=== PATIENT | female | born 1960 | race Caucasian/White ===

== ENCOUNTER → 2018-12-29 | Outpatient (CLI) | payer OTHER ==
[~2018-12-29] MED LIST: ACET-2267 PO; ALPR0.254 PO; DOXY100C2 PO; IBUP-30 PO
[2018-12-29 15:39] LABS: BASOPHILS % (AUTO) 0 % (0-10); EOSINOPHILS % (AUTO) 0 % (0-10); HEMATOCRIT 41 % (35-52); HEMOGLOBIN 14.2 G/DL (11.5-16.0); LYMPHOCYTES # (AUTO) 0.9 X 10^3 (1.0-4.0); LYMPHOCYTES % (AUTO) 7 % (12-44); MEAN CORPUSCULAR HEMOGLOBIN 32 PG (25-34); MEAN CORPUSCULAR HGB CONC 34 G/DL (32-36); MEAN CORPUSCULAR VOLUME 92 FL (80-99); MEAN PLATELET VOLUME 9.7 FL (7.4-10.4); MONOCYTES # (AUTO) 0.3 X 10^3 (0.0-1.0); MONOCYTES % (AUTO) 3 % (0-12); NEUTROPHILS # (AUTO) 10.8 X 10^3 (1.8-7.8); NEUTROPHILS % (AUTO) 90 % (42-75); PLATELET COUNT 427 10^3/uL (130-400); RED CELL DISTRIBUTION WIDTH 14.4 % (10.0-14.5)
[2018-12-29 16:03] LABS: BAND NEUTROPHILS 5 %; BASOPHILS % (MANUAL) 0 %; EOSINOPHILS % (MANUAL) 0 %; LYMPHOCYTES % (MANUAL) 3 %; MONOCYTES % (MANUAL) 3 %; NEUTROPHILS % (MANUAL) 89 %; TOXIC GRANULATION/VACUOLAZATIO 1+
--- NOTE | 2018-12-29 16:16 | Diagnostic Imaging Report ---
EXAMINATION: Chest, PA and lateral views. INDICATION: Shortness of breath. COMPARISON: None available. FINDINGS: The lungs are clear and the pulmonary vasculature is normal. No pneumothorax or pleural effusion. The cardiomediastinal silhouette is normal. No acute osseous abnormality. IMPRESSION: No acute chest disease. Dictated by: Dictated on workstation # [id number]
== END ==
LOC: LAB 15:14
PROVIDERS: ATTEND Nurse Practitioner Family
DX: R06.02 Shortness of breath (principal); R53.83 Other fatigue
CPT/HCPCS: 36415; 71046; 85007; 85027; 86308

== ENCOUNTER 2018-12-30 11:54 | Inpatient (IN) | payer OTHER ==
[~2018-12-30] VITALS: Ht 177.8 cm; Wt 71.8 kg
--- OUTSIDE RECORDS SUMMARY | 2018-12-30 11:58 | XMS REPORT ---
Author Author FLAQUITA SULLIVAN Organization [facility] Address [address] [place] [address] Care Team Providers Care Dog Catcher Name Role Phone FLAQUITA SULLIVAN Unavailable PROBLEMS Unknown Problems ALLERGIES No Information ENCOUNTERS Encounter Location Date Diagnosis [facility] [address] [facility] [id number] [address] May, Encounter for immunization Z23 IMMUNIZATIONS Vaccine Route Administration Date Status FLULAVAL QUAD 0.5ML (6 MO & UP) 2018 IM Intramuscular Jun 05, 2018 Administered SOCIAL HISTORY Never Assessed REASON FOR VISIT Flu shot PLAN OF CARE VITAL SIGNS MEDICATIONS Unknown Medications RESULTS No Results PROCEDURES Procedure Date Ordered Result Body Site FLULAVAL QUAD 0.5ML (6 MO AND UP) 2018 Jun 05, 2018 SINGLE IMMUNIZATION ADMIN Jun 05, 2018 INSTRUCTIONS MEDICATIONS ADMINISTERED No Known Medications
[2018-12-30 12:20] VITALS: BP 115/86
--- NOTE | 2018-12-30 12:20 | NUR ---
FLAQUITA HERNANDEZ admitted to room 417-1, with an admitting diagnosis of FEVER, SIRS, on 12/30/18 from via DA FROM DR. COOK, accompanied by . FLAQUITA HERNANDEZ introduced to surroundings, call light, bed controls, phone, TV, temperature control, lights, meal times, smoking policy, visitor policy, side rail policy, bathrooms and showers. Patient Rights given to patient in the handbook. FLAQUITA HERNANDEZ verbalizes understanding that [facility] is not responsible for the loss or damage to any personal effects or valuables that are kept in the patients posession during their hospitalization. FLAQUITA HERNANDEZ verbalizes understanding of Interdisciplinary Patient Education. Patient and/or family were informed about the Rapid Response Team and its purpose.
[2018-12-30] MEDS ORDERED: ONDANSETRON 4 MG/2 ML (SDV) Z0FRAN IV PRN (12:30)
[2018-12-30] MEDS ORDERED: PATIENT MAY USE OWN MEDS, ALL PO SCH (12:30)
[2018-12-30] MEDS ORDERED: DOXYCYCLINE INJECTION 100 MG in NS (IVPB) 100 ML IV NR (12:30)
[2018-12-30] MEDS: NS IV 1000 ML 1,000 ML IV SCH ×2 (12:44→22:56)
[2018-12-30 13:04] LABS: BASOPHILS % (AUTO) 0 % (0-10); EOSINOPHILS % (AUTO) 0 % (0-10); HEMATOCRIT 35 % (35-52); HEMOGLOBIN 12.1 G/DL (11.5-16.0); LYMPHOCYTES # (AUTO) 0.8 X 10^3 (1.0-4.0); LYMPHOCYTES % (AUTO) 7 % (12-44); MEAN CORPUSCULAR HEMOGLOBIN 32 PG (25-34); MEAN CORPUSCULAR HGB CONC 35 G/DL (32-36); MEAN CORPUSCULAR VOLUME 93 FL (80-99); MONOCYTES # (AUTO) 0.5 X 10^3 (0.0-1.0); MONOCYTES % (AUTO) 4 % (0-12); NEUTROPHILS # (AUTO) 10.8 X 10^3 (1.8-7.8); NEUTROPHILS % (AUTO) 90 % (42-75); PLATELET COUNT 361 10^3/uL (130-400); RED CELL DISTRIBUTION WIDTH 14.5 % (10.0-14.5)
[2018-12-30 13:30] LABS: ALANINE AMINOTRANSFERASE 71 U/L (0-55); ALBUMIN 3.3 GM/DL (3.2-4.5); ALKALINE PHOSPHATASE 113 U/L (40-136); BILIRUBIN,TOTAL 0.1 MG/DL (0.1-1.0); BUN/CREATININE RATIO 14; CALCIUM 9.2 MG/DL (8.5-10.1); CARBON DIOXIDE 20 MMOL/L (21-32); CHLORIDE 106 MMOL/L (98-107); CREATININE SERUM 0.78 MG/DL (0.60-1.30); GFR ESTIMATED > 60; GLUCOSE 129 MG/DL (70-105); POTASSIUM 3.5 MMOL/L (3.6-5.0); SODIUM 139 MMOL/L (135-145); TOTAL PROTEIN 7.4 GM/DL (6.4-8.2)
[2018-12-30 14:16] LABS: BILIRUBIN,URINE NEGATIVE (NEGATIVE); CLARITY,URINE SLIGHTLY CLOUDY; COLOR,URINE YELLOW; GLUCOSE, URINE (UA) NEGATIVE (NEGATIVE); KETONES,URINE NEGATIVE (NEGATIVE); LEUKOCYTE ESTERASE ,URINE 2+ (NEGATIVE); NITRITE,URINE NEGATIVE (NEGATIVE); PH,URINE 7 (5-9); PROTEIN,URINE NEGATIVE (NEGATIVE); UROBILINOGEN,URINE NORMAL (NORMAL)
[2018-12-30 14:23] LABS: BACTERIA,URINE TRACE /HPF
[2018-12-30] MEDS: ACETAMINOPHEN 325 MG TABLET PO PRN ×2 (14:25→19:48)
[2018-12-30 16:00] VITALS: BP 119/78
[2018-12-30 20:04] VITALS: BP 127/90
[2018-12-30] MEDS ORDERED: IBUPROFEN 600 MG (MOTRIN) TAB PO ONE (20:38)
[2018-12-30] MEDS: IBUPROFEN 600 MG (MOTRIN) TAB PO PRN (20:44)
[2018-12-30] MEDS: DOXYCYCLINE INJECTION 100 MG in NS (IVPB) 100 ML IV SCH (21:20)
[2018-12-31] VITALS: BP 113/73
[2018-12-31 04:05] VITALS: BP 135/87
[2018-12-31] MEDS: IBUPROFEN 600 MG (MOTRIN) TAB PO PRN ×3 (04:19→19:28)
[2018-12-31 05:34] LABS: HEMOGLOBIN 11.1 G/DL (11.5-16.0); MEAN PLATELET VOLUME 9.5 FL (7.4-10.4); RED CELL DISTRIBUTION WIDTH 14.2 % (10.0-14.5); WHITE BLOOD COUNT 8.5 10^3/uL (4.3-11.0)
[2018-12-31 05:56] LABS: ALANINE AMINOTRANSFERASE 66 U/L (0-55); ALBUMIN 2.8 GM/DL (3.2-4.5); ALKALINE PHOSPHATASE 88 U/L (40-136); BILIRUBIN,TOTAL 0.2 MG/DL (0.1-1.0); BUN/CREATININE RATIO 13; CALCIUM 8.2 MG/DL (8.5-10.1); CARBON DIOXIDE 19 MMOL/L (21-32); CHLORIDE 107 MMOL/L (98-107); CREATININE SERUM 0.62 MG/DL (0.60-1.30); GFR ESTIMATED > 60; GLUCOSE 101 MG/DL (70-105); POTASSIUM 3.2 MMOL/L (3.6-5.0); SODIUM 136 MMOL/L (135-145); TOTAL PROTEIN 6.3 GM/DL (6.4-8.2)
[2018-12-31] MEDS: NS IV 1000 ML 1,000 ML IV SCH ×2 (07:00→15:25)
[2018-12-31] MEDS: ACETAMINOPHEN 325 MG TABLET PO PRN (07:04)
[2018-12-31 07:50] VITALS: BP 114/71
[2018-12-31] MEDS: DOXYCYCLINE INJECTION 100 MG in NS (IVPB) 100 ML IV SCH ×2 (08:35→19:58)
[2018-12-31] MEDS ORDERED: KCL 20 MEQ TAB (K-DUR) PO NR (12:30)
[2018-12-31] MEDS ORDERED: ALPRAZolam 0.25 MG (XANAX) TAB PO NR (12:30)
[2018-12-31] MEDS ORDERED: MAGNESIUM OXIDE (MAG-OX)400 MG TAB PO NR (12:30)
[2018-12-31 12:32] VITALS: BP 126/87
[2018-12-31] MEDS: cefTRIAXone FOR IV USE 1,000 MG in WATER (STERILE) FOR INJECTION 10 ML IV SCH (13:28)
--- NOTE | 2018-12-31 13:38 | NUR ---
PT REQUESTED SOMETHING TO HAVE A BM VOICED LAST BM WAS 12/29 AND IT WAS SMALL -- THIS RN CALLED DR COOK AND LEFT MESSAGE
[2018-12-31] MEDS ORDERED: MILK OF MAGNESIA 400 MG/5 ML 30 ML UDC PO NR (14:15)
[2018-12-31] MEDS ORDERED: SENNA W/DOCUSATE (SENOKOT S) TABLET PO NR (14:15)
--- NOTE | 2018-12-31 15:51 | Diagnostic Imaging Report ---
PROCEDURE: CT head without contrast. TECHNIQUE: Multiple contiguous axial images were obtained through the brain without the use of intravenous contrast. Auto Exposure Controls were utilized during the CT exam to meet ALARA standards for radiation dose reduction. INDICATION: Headache and dizziness for 10 days. COMPARISON: No prior studies are available for comparison. FINDINGS: The ventricles and sulci are within normal limits. No sulcal effacement, midline shift or hemorrhage is detected. Cisterns are patent. Visualized paranasal sinuses are clear. IMPRESSION: No acute intracranial process is detected. Dictated by: Dictated on workstation # [id number]
[2018-12-31 16:00] VITALS: BP 126/86
--- NOTE | 2018-12-31 18:51 | History & Physicial ---
History of Present Illness History of Present Illness Reason for visit/HPI This is a 58 year old female who originally presented to my office with at least a 2 week history of fevery, TSANG, and bodyaches. She had been seen twice in the [facility] and had been given antibiotics for sinus infection as well as steroids. In my office she appeared very ill and admission was initially offered but she declined. She did agree to IVFs and rocephin and to fwup the next day, however, after the IV fluids she was not feeling any better and agreed to hospital admission. Date of Admission December 30, 2018 at 11:54 Date Seen by a Provider: December 31, 2018 Time Seen by a Provider: 12:20 I consulted on this patient on 12/31/18 18:46 Attending Physician Mae Mosqueda DO Admitting Physician Mae Mosqueda DO Consult Allergies and Home Medications Allergies Coded Allergies: No Known Allergies (Verified Allergy, Unknown, 12/30/18) Patient Home Medication List Home Medication List Reviewed: Yes Past Fhqsamw-Muiihz-Dabbkq Hx Patient Social History Alcohol Use: Denies Use Recreational Drug Use: No Physical Abuse Screen: No Sexual Abuse: No Recent Foreign Travel: No Contact w/other who traveled: No Recent Hopitalizations: No Recent Infectious Disease Expo: No Seasonal Allergies Seasonal Allergies: No Surgeries Yes (breat augmentation, D&C for miscarriages) Respiratory No Cardiovascular No Neurological No Genitourinary No Gastrointestinal No Musculoskeletal Yes Arthritis Endocrine History of Endocrine Disorders: No HEENT History of HEENT Disorders: No Cancer No Psychosocial History of Psychiatric Problem: No Integumentary History of Skin or Integumenta: Yes Skin/Integumentary Disorders: Psoriasis Blood Transfusions History of Blood Disorders: No Adverse Reaction to a Blood Tr: No Family Medical History Family Hx: Alzheimer's disease 19 FATHER, Completed stroke 19 MOTHER, Diabetes mellitus G8 SISTER G8 SISTER Hypertension 19 MOTHER, G8 SISTER G8 SISTER Review of Systems Constitutional: chills, fever EENTM: nose congestion (sinus pain) Respiratory: No no symptoms reported, No see HPI, No cough, No dyspnea on exertion, No hemoptysis, No orthopnea, No phlegm, No short of breath, No stridor , No wheezing, No other Cardiovascular: palpitations Gastrointestinal: loss of appetite Genitourinary: No no symptoms reported, No see HPI, No decreased output, No discharge, No dysuria, No frequency, No hematuria, No hesitancy, No incontinence , No nocturia, No pain, No other Musculoskeletal: joint pain, muscle weakness Skin: No no symptoms reported, No see HPI, No change in color, No change in hair/nails, No dryness, No hx of skin cancer, No lesions, No lumps, No pruritus , No rash, No other Psychiatric/Neurological: Headache, Weakness Physical Exam Vital Signs Vital Signs - First Documented 12/30/18 15:45 Pulse 107 Capillary Refill : Height, Weight, BMI Height: 5'10.00" Weight: 158lbs. 6.4oz. 71.367607mn; BMI Method: General Appearance: Moderate Distress HEENT: Normal ENT Inspection Neck: Supple Respiratory: Lungs Clear Cardiovascular: Gallop/S4, Tachycardia Gastrointestinal: Normal Bowel Sounds, Non Tender, Soft Rectal: Deferred Back: No CVA Tenderness Extremity: Non Tender, No Calf Tenderness, No Pedal Edema Neurologic/Psychiatric: Alert, Oriented x3 Skin: Normal Color, Warm/Dry Comments Laboratory Tests 12/31/18 05:20: White Blood Count 8.5, Red Blood Count 3.47L, Hemoglobin 11.1L, Hematocrit 32L, Mean Corpuscular Volume 92, Mean Corpuscular Hemoglobin 32, Mean Corpuscular Hemoglobin Concent 35, Red Cell Distribution Width 14.2, Platelet Count 319, Mean Platelet Volume 9.5, Sodium Level 136, Potassium Level 3.2L, Chloride Level 107, Carbon Dioxide Level 19L, Anion Gap 10, Blood Urea Nitrogen 8, Creatinine 0.62, Estimat Glomerular Filtration Rate > 60, BUN/Creatinine Ratio 13, Glucose Level 101, Calcium Level 8.2L, Corrected Calcium 9.2, Total Bilirubin 0.2, Aspartate Amino Transf (AST/SGOT) 55H, Alanine Aminotransferase ( ALT/SGPT) 66H, Alkaline Phosphatase 88, Total Protein 6.3L, Albumin 2.8L Microbiology 12/30/18 Blood Culture - Preliminary, Resulted No growth Assessment/Plan Assessment and Plan 1. SIRS--admit and check blood cultures, urine cultures, tick titers, cover with doxycycline for tick etiology 2. Tachycardia--hydrate and monitor Admission Diagnosis Admission Status: Inpatient Order (span 2 midnights) Reason for Inpatient Admission: Will need IV abx for at leas 2 days until culture results available Clinical Quality Measures DVT/VTE Risk/Contraindication: Risk Factor Score Per Nursin RFS Level Per Nursing on Admit: 2=Moderate MAE MOSQUEDA DO December 31, 2018 18:51
[2018-12-31 20:00] VITALS: BP 142/99
[2018-12-31] MEDS: ALPRAZolam 0.25 MG (XANAX) TAB PO PRN (20:09)
[2019-01-01] VITALS: BP 122/81
[2019-01-01] MEDS: NS IV 1000 ML 1,000 ML IV SCH ×2 (00:31→06:33)
[2019-01-01 04:00] VITALS: BP 138/91
[2019-01-01] MEDS: ALPRAZolam 0.25 MG (XANAX) TAB PO PRN (04:54)
[2019-01-01 05:25] LABS: BASOPHILS % (AUTO) 0 % (0-10); EOSINOPHILS # (AUTO) 0.1 10^3/uL (0.0-0.3); EOSINOPHILS % (AUTO) 1 % (0-10); HEMATOCRIT 35 % (35-52); HEMOGLOBIN 11.9 G/DL (11.5-16.0); LYMPHOCYTES # (AUTO) 1.3 X 10^3 (1.0-4.0); LYMPHOCYTES % (AUTO) 15 % (12-44); MEAN CORPUSCULAR HEMOGLOBIN 31 PG (25-34); MEAN CORPUSCULAR HGB CONC 34 G/DL (32-36); MEAN CORPUSCULAR VOLUME 92 FL (80-99); MEAN PLATELET VOLUME 9.3 FL (7.4-10.4); MONOCYTES # (AUTO) 0.7 X 10^3 (0.0-1.0); MONOCYTES % (AUTO) 9 % (0-12); NEUTROPHILS # (AUTO) 6.4 X 10^3 (1.8-7.8); NEUTROPHILS % (AUTO) 75 % (42-75); PLATELET COUNT 400 10^3/uL (130-400); RED CELL DISTRIBUTION WIDTH 14.8 % (10.0-14.5); WHITE BLOOD COUNT 8.5 10^3/uL (4.3-11.0)
[2019-01-01 05:49] LABS: ALANINE AMINOTRANSFERASE 70 U/L (0-55); ALBUMIN 2.9 GM/DL (3.2-4.5); ALKALINE PHOSPHATASE 99 U/L (40-136); BILIRUBIN,TOTAL 0.2 MG/DL (0.1-1.0); BUN/CREATININE RATIO 7; CALCIUM 8.7 MG/DL (8.5-10.1); CARBON DIOXIDE 20 MMOL/L (21-32); CHLORIDE 106 MMOL/L (98-107); CREATININE SERUM 0.67 MG/DL (0.60-1.30); GFR ESTIMATED > 60; GLUCOSE 87 MG/DL (70-105); POTASSIUM 3.6 MMOL/L (3.6-5.0); SODIUM 138 MMOL/L (135-145); TOTAL PROTEIN 6.7 GM/DL (6.4-8.2)
[2019-01-01] MEDS: IBUPROFEN 600 MG (MOTRIN) TAB PO PRN (06:58)
[2019-01-01] MEDS ORDERED: KCL 20 MEQ TAB (K-DUR) PO SCH (07:00)
[2019-01-01 08:00] VITALS: BP 126/88
[2019-01-01] MEDS: DOXYCYCLINE INJECTION 100 MG in NS (IVPB) 100 ML IV SCH (08:17)
[2019-01-01] MEDS ORDERED: ALPRAZolam 0.25 MG (XANAX) TAB PO PRN (08:45)
[2019-01-01] MEDS ORDERED: ACET-2267 PO (11:41)
[2019-01-01] MEDS ORDERED: IBUP-30 PO (11:41)
[2019-01-01] MEDS: cefTRIAXone FOR IV USE 1,000 MG in WATER (STERILE) FOR INJECTION 10 ML IV SCH (11:42)
--- NOTE | 2019-01-01 11:42 | NUR ---
SPOKE WITH THE PATIENT ABOUT HER MEDICATIONS. SHE STATES SHE DOES NOT TAKE ANYTHING NORMALLY. SHE HAS BEEN TAKING IBU AND TYLENOL PRN. SHE WAS RECENTLY PRESCRIBED DOXYCYCLINE HOWEVER WAS TOLD TO STOP TAKING THIS BY DR. COOK, I DID NOT ADD IT TO THE MED REC.
[2019-01-01 12:00] VITALS: BP 124/87
[2019-01-01] MEDS ORDERED: ALPR0.254 PO (12:48)
[2019-01-01] MEDS ORDERED: DOXY100C2 PO (12:48)
--- NOTE | 2019-01-01 12:49 | Discharge Inst-Simple/Standard ---
Discharge Inst-Standard Discharge Medications New, Converted or Re-Newed RX: Transmitted to Pharmacy Patient Instructions/Follow Up Plan of Care/Instructions/FU: See me tomorrow in my office at 11:45 AM Activity as Tolerated: Yes Discharge Diet: No Restrictions MARTHA COOK DO January 01, 2019 12:49
--- NOTE | 2019-01-01 13:42 | NUR ---
FLAQUITA HERNANDEZ demonstrates understanding of discharge instructions and accurately returns instructions upon questioning. Copy of Post-Discharge Instructions and Medication Discharge Instructions given to PATIENT. FLAQUITA HERNANDEZ is able to manage continuing needs after discharge. Patients belongings returned to PATIENT. Skin dry and intact; no breakdown noted. Patient discharged from [facility] on 01/01/19 at 1340. FLAQUITA HERNANDEZ left floor via ABULATORY, accompanied by AND STAFF.
--- NOTE | 2019-01-03 15:56 | Physician Query-Final Dx ---
MARIA ESTHER ARZOLA 01/03/19 1556: Final Diagnosis Give Final Diagnosis Please give Final Diagnosis MARTHA COOK DO 01/09/19 1231: Final Diagnosis Give Final Diagnosis See DC summary MARIA ESTHER ARZOLA January 03, 2019 15:56 MARTHA COOK DO January 09, 2019 12:31
--- NOTE | 2019-01-08 18:55 | Discharge Summary ---
Diagnosis/Chief Complaint Date of Admission December 30, 2018 at 11:54 Date of Discharge January 01, 2019 at 13:45 Discharge Date: January 01, 2019 Discharge Diagnosis 1. SIRS--blood cultures negative but tick panel still pending 2. Tachycardia--improving 3. Cephalgia--improving 4. UTI--improved Reason Hospital Visit This is a 58 year old female who originally presented to my office with at least a 2 week history of fevery, TSANG, and bodyaches. She had been seen twice in the [facility] and had been given antibiotics for sinus infection as well as steroids. In my office she appeared very ill and admission was initially offered but she declined. She did agree to IVFs and rocephin and to fwup the next day, however, after the IV fluids she was not feeling any better and agreed to hospital admission. Discharge Summary Hospital Course Hospital Course This is a 58 year old female who originally presented to my office with at least a 2 week history of fevery, TSANG, and bodyaches. She had been seen twice in the [facility] and had been given antibiotics for sinus infection as well as steroids. In my office she appeared very ill and admission was initially offered but she declined. She did agree to IVFs and rocephin and to fwup the next day, however, after the IV fluids she was not feeling any better and agreed to hospital admission. She was admitted to the medical floor and tick panels as well as urine and blood cultures were obtained. She was started on doxycycline for tick etiology as well as rocephin for UTI. She continued to spike fevers above 101 the first 2 nights of admission but by the last night of admission her temperature stayed less than 100. Her tachycardia improved with hydration and decrease in her temperature. She continued to complain of HAs the first [address] of the head was done which was negative and lumbar puncture was considered and discussed. She was given xanax prn and this helped her relax and helped her HAs. Her blood cultures were negative and her WBC count was back to normal at discharge at 8.5 but her tick panel was still pending. She much improved and wanted to go home so she was sent home on oral doxycycline and was instructed to followup with me in my office the next day. Procedures None. Discharge Physical Examination Allergies: Coded Allergies: No Known Allergies (Verified Allergy, Unknown, 12/30/18) General Appearance: Alert, Oriented X3, Cooperative, No Acute Distress Respiratory: Clear to Auscultation Cardiovascular: Regular Rate Abdominal: Normal Bowel Sounds, Soft, No Tenderness Extremities: No Clubbing, No Cyanosis, No Edema Neuro: Normal Gait Psych/Mental Status: Mental Status NL Discharge Home Medications Reviewed and agree with Discharge Medication list on patient's Discharge Instruction sheet Instructions to Patient/Family Please see electronic discharge instructions given to patient. Clinical Quality Measures DVT/VTE Risk/Contraindication: Risk Factor Score Per Nursin RFS Level Per Nursing on Admit: 2=Moderate MARTHA COOK DO January 08, 2019 18:54
== END 2019-01-01 13:45 | disposition home or self-care (01) | DRG 690 ==
LOC: 4TH 11:54
PROVIDERS: ADMIT Family Medicine; ATTEND Family Medicine
DX: N39.0 Urinary tract infection, site not specified (principal); R51 Headache; R00.0 Tachycardia, unspecified; L40.9 Psoriasis, unspecified; M19.91 Primary osteoarthritis, unspecified site
CPT/HCPCS: 36415; 70450; 80053; 81000; 84443; 85025; 85027; 86141; 86618; 86666; 86668; 86757; 87040

== ENCOUNTER 2022-03-08 06:26 | Outpatient (CLI) | payer OTHER ==
[~2022-03-08] VITALS: Ht 177.8 cm; Wt 77.1 kg
[~2022-03-08 06:26] MED LIST changes: +ALPR.25T PO; -ALPR0.254 PO; -DOXY100C2 PO; +DOXY100C5 PO
[2022-03-08] MEDS ORDERED: CHOL400T29 PO (11:04)
[2022-03-08] MEDS ORDERED: VITA1CAP PO (11:04)
[2022-03-08] MEDS ORDERED: ZINC50TA51 PO (11:04)
[2022-03-08] MEDS ORDERED: ASPI-999 PO (11:04)
[2022-03-08] MEDS ORDERED: PLAN450C PO (11:04)
[2022-03-08] MEDS ORDERED: OMG1KC PO (11:04)
== END 2022-03-08 11:13 | disposition home or self-care (01) ==
LOC: PREOP 06:26
PROVIDERS: ATTEND Surgery
DX: Z01.818 Encounter for other preprocedural examination (principal)

== ENCOUNTER 2022-03-15 10:02 | Day surgery (SDC) | payer OTHER ==
[~2022-03-15] VITALS: Ht 177.8 cm; Wt 77.1 kg
[~2022-03-15 10:02] MED LIST changes: +ASPI-999 PO; +CHOL400T29 PO; +OMG1KC PO; +PLAN450C PO; +VITA1CAP PO; +ZINC50TA51 PO
[2022-03-15] MEDS ORDERED: LACTATED RINGERS 1,000 ML IV STA (10:11)
[2022-03-15] MEDS ORDERED: HURRICAINE EXT TUBE (BENZOCAINE) XX PRN (10:15)
[2022-03-15] MEDS ORDERED: LIDOCAINE JELLY 2% 6 ML SYRINGE MM PRN (10:15)
[2022-03-15] MEDS ORDERED: LACTATED RINGERS 1,000 ML IV ONE (10:19)
[2022-03-15 10:28] VITALS: BP 145/105
--- NOTE | 2022-03-15 10:43 | Progress Note-Pre Operative ---
Pre-Operative Progress Note H&P Reviewed The H&P was reviewed, patient examined and no changes noted. Date Seen by Provider: Mar 15, 2022 Time Seen by Provider: 10:00 Date H&P Reviewed: Mar 15, 2022 Time H&P Reviewed: 10:00 Pre-Operative Diagnosis: dysphagia, screening o JEREMIAH BROOKS MD Mar 15, 2022 10:43
[2022-03-15] MEDS ORDERED: PANT40TA2 PO (10:44)
--- NOTE | 2022-03-15 10:44 | Discharge Inst-Surgical ---
D/C Lap Instructions-KIDO New, Converted, or Re-Newed RX: RX on Chart Follow Up Activity as tolerated High Fiber Diet 25g or more per day Avoid Alcohol, Caffeine, Spicy Arvin and Acid foods. Drink 64 fluid oz or more of fluids per day. Symptoms to Report: Fever over 101 degree F, Nausea/Vomiting If any problems/questions: Contact your physician or go to Emergency Room JEREMIAH BROOKS MD Mar 15, 2022 10:44
[2022-03-15] MEDS ORDERED: ONDANSETRON 4 MG (ZOFRAN) ORAL DISSOLVE TAB PO PRN (10:45)
[2022-03-15] MEDS ORDERED: ONDANSETRON 4 MG/2 ML (SDV) Z0FRAN IVP PRN (10:45)
[2022-03-15] MEDS ORDERED: MIDAZOLAM 2 MG/2 ML (VERSED) VIAL ONE (11:11)
[2022-03-15] MEDS ORDERED: PROPOFOL INJECTION 50 ML IV ONE ×2 (11:11→11:48)
[2022-03-15 12:20] VITALS: BP 109/77
[2022-03-15 12:25] VITALS: BP 106/76
[2022-03-15 12:30] VITALS: BP 109/78
--- NOTE | 2022-03-15 12:45 | Progress Note-Post Operative ---
Post-Operative Progess Note Surgeon (s)/Occupational Therapist Assistant (s) Surgeon JEREMIAH BROOKS MD Occupational Therapist Assistant: none Pre-Operative Diagnosis dysphagia, screening colo Post-Operative Diagnosis reflux esophagitis(grade C) with distal esoph stricture, small HH(1cm), moderate gastritis. chronic stage 2 ext and int hemorrhoids, mild sigmoid diverticulosis. Procedure & Operative Findings Date of Procedure 03/15/22 Procedure Performed/Findings EGD with balloon dilatation. colonoscopy Anesthesia Type mac Estimated Blood Loss Estimated blood loss (mL): minimal Specimens/Packing Specimens Removed fe jxn, antrum JEREMIAH BROOKS MD Mar 15, 2022 12:45
[2022-03-15 12:55] VITALS: BP 145/103
[2022-03-15 13:00] VITALS: BP 145/103
--- NOTE | 2022-03-15 14:23 | Anesthesia-General Post-Op ---
MAC Patient Condition Mental Status/LOC: Same as Preop Cardiovascular: Satisfactory Nausea/Vomiting: Absent Respiratory: Satisfactory Pain: Controlled Complications: Absent Post Op Complications Complications None Follow Up Care/Instructions Patient Instructions None needed. Anesthesiology Discharge Order Discharge Order Patient is doing well, no complaints, stable vital signs, no apparent adverse anesthesia problems. No complications reported per nursing. KAROLINA CERON CRNA Mar 15, 2022 14:23
--- NOTE | 2022-03-15 21:45 | OPERATIVE REPORT ---
DATE OF SERVICE: 03/15/2022 ATTENDING PRIMARY CARE PHYSICIAN: Dr. Mae Mosqueda. PREOPERATIVE DIAGNOSES: Dysphagia, gastroesophageal reflux disease, screening colonoscopy. POSTOPERATIVE DIAGNOSES: Reflux esophagitis, [place] grade C with a distal esophageal stricture, small hiatal hernia 1 cm in size, moderate gastritis. No distal obstructions. Chronic stage II external and internal hemorrhoids, mild sigmoid diverticulosis. PROCEDURE: EGD with biopsy and balloon dilatation, colonoscopy. SURGEON: Jeremiah Brooks MD. ANESTHESIA: Monitored anesthesia care. ESTIMATED BLOOD LOSS: Minimal. FINDINGS: Reflux esophagitis, [place] grade C with a distal esophageal stricture, small hiatal hernia 1 cm in size, moderate gastritis. No distal obstructions. Chronic stage II external and internal hemorrhoids, mild sigmoid diverticulosis. DISPOSITION: The patient tolerated the procedure well. INDICATIONS: The patient is a 61-year-old female who has been having issues with dysphagia. Upon further questioning, she reports that she has had some issues with gastroesophageal reflux disease; however, this has progressed to issues with substernal chest pressure after food bolus, usually lean meats as well as breads and this reduce over time or else she would regurgitate them back up. She does not report any hematemesis, no coffee-ground emesis. She is also in need of a screening colonoscopy. She has not had a colonoscopy up to this point in her life. DESCRIPTION OF PROCEDURE: The patient was brought to the endoscopy suite, laid in the left lateral decubitus position. After adequate IV pain and sedative medications and monitored anesthesia care, the mouthpiece was applied. The endoscope was placed in the mouth, visualizing the pharynx and hypopharyngeal region. Vocal cords, epiglottis and vallecula identified and appeared to be normal. The endoscope was then gently intubated into the esophageal opening and esophagus insufflated. The endoscope was then advanced to the first, second and third portions of esophagus at the level of the GE junction, reflux esophagitis Bur[place] grade C identified with a distal esophageal stricture identified. A biopsy was taken with forceps with visualization of good hemostasis. The endoscope was then advanced in the stomach and endoscope retroflexed, visualizing a small hiatal hernia approximately 1 cm in size. There was a moderate severity gastritis. No formal ulcerations, polyps, or any neoplasms and a biopsy was taken of the antrum to rule out H. pylori with visualization of good hemostasis. The endoscope was then advanced through the pylorus and the first and second portion of the duodenum, which appeared normal with no distal obstructions. The balloon was then placed in the stomach and pulled back to the area of the stricture. We then proceeded in a graded stepwise fashion from 2, 4, then eventually 6 atmospheres of pressure or 20 mm in luminal diameter with moderate resistance and left this in place for 60 seconds. The balloon was then desufflated and removed with visualization of good hemostasis as well as no mucosal tears. The endoscope was then slowly withdrawn while taking a second look and suctioning of residual air with no additional findings. A digital rectal examination was performed. There was chronic stage II external and internal hemorrhoids, not actively edematous nor inflamed and no bleeding. Normal sphincter tone was felt and there were no palpable masses. The endoscope was then intubated to the anus and rectum gently insufflated. The endoscope was then advanced through the valves of Cavanaugh of the rectum with no polyps or any neoplasms identified. We then proceeded to sigmoid colon where mild sigmoid diverticulosis identified. We then proceeded through the remainder of the descending, transverse, ascending colon, and cecum, which were normal. There were no polyps or any neoplasms identified throughout the colon or rectum. The endoscope was then slowly withdrawn while taking a second look and suctioning of residual air with no additional findings. The patient tolerated the procedure well. We will recommend the necessary lifestyle and dietary accommodation including small and more frequent meals, avoidance of eating at night as well as head elevation while lying supine. She also needs to avoid caffeinated beverages as well as alcoholic beverages as well. We will also start her on Protonix 40 mg daily. We also recommend high fiber diet with incorporation with fiber supplement, which should equal or exceed 30 grams daily as well as significant amounts of water to promote soft consistency stools on a daily basis. If she is asymptomatic, she does not need another colonoscopy for another 10 years. Job ID: [id number] DocumentID: [id number] Dictated Date: 03/15/2022 12:28:45 [employer] Date: 03/15/2022 21:44:46 Dictated By: JEREMIAH BROOKS MD [facility]
== END 2022-03-15 13:00 | disposition home or self-care (01) ==
LOC: ENDO 10:02
PROVIDERS: ATTEND Surgery
DX: Z12.11 Encounter for screening for malignant neoplasm of colon (principal); K21.00 Gastro-esophageal reflux disease with esophagitis, without bleeding; K22.2 Esophageal obstruction; K44.9 Diaphragmatic hernia without obstruction or gangrene; K29.70 Gastritis, unspecified, without bleeding; K64.1 Second degree hemorrhoids; K64.4 Residual hemorrhoidal skin tags; K57.30 Diverticulosis of large intestine without perforation or abscess without bleeding; Z79.82 Long term (current) use of aspirin; Z28.310 Unvaccinated for COVID-19
CPT/HCPCS: 88305

== ENCOUNTER 2022-04-30 14:06 | Emergency (ER) | payer OTHER ==
[~2022-04-30] VITALS: Ht 178 cm; Wt 79.0 kg
[~2022-04-30 14:06] MED LIST changes: +PANT40TA2 PO
[2022-04-30] MEDS ORDERED: TETANUS,DIPTH,PERTUSS P/F (BOOSTRIX) 0.5 ML VIAL IM ONE (14:15)
[2022-04-30 14:22] LABS: HEMATOCRIT 42 % (35-52); HEMOGLOBIN 14.5 g/dL (11.5-16.0); MEAN CORPUSCULAR HEMOGLOBIN 33 pg (25-34); MEAN CORPUSCULAR HGB CONC 34 g/dL (32-36); MEAN CORPUSCULAR VOLUME 96 fL (80-99); MEAN PLATELET VOLUME 10.4 fL (9.0-12.2); PLATELET COUNT 231 10^3/uL (130-400); WHITE BLOOD COUNT 6.3 10^3/uL (4.3-11.0)
--- NOTE | 2022-04-30 14:40 | Diagnostic Imaging Report ---
INDICATION: Trauma. FINDINGS: The heart size, mediastinal configuration, and pulmonary vascularity are within normal limits. There is no pleural effusion, pneumothorax, or pneumonia. The osseous structures are unremarkable. IMPRESSION: No acute cardiopulmonary abnormality. Dictated by: Dictated on workstation # [id number]
[2022-04-30 14:41] LABS: ALANINE AMINOTRANSFERASE 16 U/L (0-55); ALKALINE PHOSPHATASE 78 U/L (40-136); BILIRUBIN,DIRECT 0.1 MG/DL (0.0-0.3); BILIRUBIN,INDIRECT 0.3 MG/DL; BILIRUBIN,TOTAL 0.4 MG/DL (0.1-1.0); BUN/CREATININE RATIO 15; CALCIUM 9.8 MG/DL (8.5-10.1); CARBON DIOXIDE 22 MMOL/L (21-32); CHLORIDE 106 MMOL/L (98-107); CREATININE SERUM 0.95 MG/DL (0.60-1.30); GFR ESTIMATED 69; GLUCOSE 158 MG/DL (70-105); SODIUM 138 MMOL/L (135-145); TOTAL PROTEIN 8.1 GM/DL (6.4-8.2)
--- NOTE | 2022-04-30 14:42 | Diagnostic Imaging Report ---
PROCEDURE: CT head and CT cervical spine without contrast. TECHNIQUE: Multiple contiguous axial images were obtained through the brain and cervical spine without the use of intravenous contrast. Sagittal and coronal reformations through the cervical spine were then performed. Auto Exposure Controls were utilized during the CT exam to meet ALARA standards for radiation dose reduction. INDICATION: Neck pain after trauma. Comparison is made with prior examination 12/31/2018. FINDINGS: The ventricles and sulci are within normal limits. There is no hydrocephalus. There is no midline shift. There is a small amount of subarachnoid hemorrhage in the right frontal and right parietal lobes. There may also be some trace subarachnoid hemorrhage on the left. There is no extra-axial hemorrhage. The calvarium is intact. Sinuses and mastoid air cells are clear. The alignment of cervical spine is normal. The vertebral body heights well-maintained. There is some posterior facet arthropathy. There is no fracture or traumatic subluxation. Odontoid is intact and lateral masses well aligned. Prevertebral soft tissues are within normal limits. Lung apices are clear. IMPRESSION: Small amount of subarachnoid hemorrhage in the posterior right frontal and right parietal lobes presumably posttraumatic. There may also be some trace subarachnoid hemorrhage in the left. No other acute intracranial abnormality. No fracture or traumatic subluxation in the cervical spine. Dictated by: Dictated on workstation # [id number]
--- NOTE | 2022-04-30 14:42 | Diagnostic Imaging Report ---
Indication: Trauma. FINDINGS: The bony pelvis is intact. SI joints unremarkable. Lumbar spine is normal. Proximal femurs are normal. Soft tissues are unremarkable IMPRESSION: No acute fracture or dislocation about the pelvic girdle. Dictated by: Dictated on workstation # [id number]
--- NOTE | 2022-04-30 14:42 | Diagnostic Imaging Report ---
INDICATION: Ankle pain. FINDINGS: The plafond's and talar dome are intact. Ankle mortise is symmetric. There is no fracture or dislocation. There appears to be a significant soft tissue injury along the medial aspect just proximal to the left ankle mortise. There is a questionable minute foreign body just anterior to the Achilles tendon on the lateral projection. IMPRESSION: Findings suspect for a focal soft tissue defect along the posterior medial aspect of the ankle. There is a questionable minute foreign body anterior to the Achilles tendon proximally. No fracture or dislocation. Dictated by: Dictated on workstation # [id number]
[2022-04-30] MEDS ORDERED: ceFAZolin INJECTION 2,000 MG in NS (IVPB) 50 ML IV SCH (15:00)
[2022-04-30] MEDS ORDERED: fentaNYL INJ 100 MCG/2 ML AMP IVP ONE (15:00)
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
[2022-04-30] MEDS ORDERED: ceFAZolin INJECTION 1,000 MG VIAL IV ONE (15:15)
[2022-04-30] MEDS ORDERED: NS (IVPB) 50 ML ONE (15:19)
[2022-04-30] MEDS ORDERED: morphine INJ 10 MG/ML 1ML (SYR OR VIAL) IVP STA (15:29)
[2022-04-30] MEDS ORDERED: LIDOCAINE 1% INJ 20 ML VIAL INJ ONE (15:30)
[2022-04-30] MEDS ORDERED: LIDOCAINE 1% INJ 10 ML VIAL ONE (15:39)
[2022-04-30 15:56] VITALS: BP 129/93
[2022-04-30] MEDS ORDERED: HYDROmorphone 2 MG/ML VIAL (DILAUDID) IV ONE (16:00)
== END 2022-04-30 15:56 | disposition short-term general hospital (02) ==
LOC: EDUNIT# 14:06 → ER 14:08
DX: S06.6X1A Traumatic subarachnoid hemorrhage with loss of consciousness of 30 minutes or less, initial encounter (principal); S91.011A Laceration without foreign body, right ankle, initial encounter; R41.2 Retrograde amnesia; Z28.310 Unvaccinated for COVID-19; V86.95XA Unspecified occupant of 3- or 4- wheeled all-terrain vehicle (ATV) injured in nontraffic accident, initial encounter
CPT/HCPCS: 70450; 71045; 72125; 72170; 73610; 80048; 80076; 85027; 93041; 99285; G0480; 36415; 80320; 90715